=== PATIENT | male | born 1980 | race Two or more races ===

== ENCOUNTER 2018-08-15 20:06 | Emergency (ER) | payer OTHER ==
[2018-08-15] MEDS ORDERED: HYDROmorphONE/DILAUDID 2 MG/ML INJ IVP ONE (20:20)
[2018-08-15] MEDS ORDERED: ONDANSETRON 4 MG/2 ML VIAL IVP ONE (20:21)
[2018-08-15] MEDS ORDERED: KETOROLAC 15 MG/1 ML SDV IVP ONE ×2 (20:22→20:55)
[2018-08-15] MEDS ORDERED: NS 1,000 ML IV ONE ×2 (20:22→21:06)
[2018-08-15 22:00] VITALS: BP 130/89
[2018-08-15] MEDS ORDERED: TAMSULOSIN HCL 0.4 MG CAP PO ONE (22:02)
--- NOTE | 2018-08-15 22:06 | EDPHY ---
H & P Stated Complaint: 10/10 suprapubic pain x 20 min. Denies urinary s/s. Denies fever. Time Seen by Provider: 08/15/18 20:13 HPI/ROS: This patient complains of severe suprapubic pain. He explains that he was playing poker game feeling relaxed when he felt abrupt onset of 10/10 pain to the suprapubic region that radiated to his left testicle more than right testicle. He thought he might have to have a bowel movement and went to the bathroom but vomited instead. He came in by private vehicle for evaluation of the symptoms and has not had any medications prior to arrival. He has never had these symptoms before. He was in his usual state of health feeling well prior to the onset of symptoms. He explains that he does have an abdominal wall hernia in the left lower quadrant that is not causing him pain is chronic. He also has a small right direct inguinal hernia that is also a pain-free. ROS: Constitutional: No fevers HEENT: No complaints Pulmonary: No shortness of breath. Cardiovascular: No lightheadedness. No chest pain. No lower extremity pallor. GI: No upper abdominal pain. No distension. Normal bowel movements. : No complaints except the testicle pain which is now resolving Integumentary: No complaints Neuro: No numbness or tingling lower extremities. 10 point review of symptoms is performed and otherwise negative with exception of pertinent positives and negatives listed in HPI and ROS Source: Patient Exam Limitations: No limitations - Personal History Current Tetanus Diphtheria and Acellular Pertussis (TDAP): Yes - Medical/Surgical History Hx Asthma: No Hx Chronic Respiratory Disease: No Hx Diabetes: No Hx Cardiac Disease: No Hx Renal Disease: No Hx Cirrhosis: No Hx Alcoholism: No Hx HIV/AIDS: No Hx Splenectomy or Spleen Trauma: No Other PMH: inguinal hernias, broken bones - Family History Significant Family History: No pertinent family hx - Social History Smoking Status: Never smoked Alcohol Use: Occasionally Drug Use: None - Physical Exam Exam: General Appearance: This patient is in acute distress writhing on the cart and crying out in pain. Eyes: Pupils equal and round no pallor or injection. ENT, Mouth: Mucous membranes moist. Respiratory: There are no retractions, lungs are clear to auscultation. Cardiovascular: Regular rate and rhythm. No murmur gallop rub. He maintains 2 + symmetric femoral pulses bilaterally with no clinical findings of ischemia in the lower extremities. Gastrointestinal: Normoactive, soft, there is a reducible left lower quadrant hernia with no significant tenderness. No pulsatile masses. : No testicular tenderness or clinical evidence of torsion. No epididymal tenderness. Non circumcised penis without discharge or lesions. He has a right -sided direct inguinal hernia that is easily reducible. Back: Positive for left CVA tenderness no right-sided CVA tenderness. No midline tenderness. Neurological: GCS 15. Skin: Warm and dry, no rashes. Musculoskeletal: Neck is supple nontender. Extremities are symmetrical, full range of motion. Psychiatric: Mood and affect are normal DIFFERENTIAL DIAGNOSIS: After history and physical exam differential diagnosis included but is not limited to ureteral stone, aortic dissection, bowel obstruction, musculoskeletal pain, Constitutional: Initial Vital Signs Temperature (C) 37.0 C 08/15/18 20:15 Heart Rate 88 08/15/18 20:15 Respiratory Rate 22 H 08/15/18 20:15 Blood Pressure 178/113 H 08/15/18 20:15 O2 Sat (%) 98 08/15/18 20:15 O2 Delivery Mode Room Air O2 (L/minute) 2 Allergies/Adverse Reactions: No Known Allergies Allergy (Unverified 08/15/18 20:15) Home Medications: Medication Instructions Recorded Ibuprofen [Motrin (*)] 600 mg PO Q6 PRN #30 tab 08/15/18 Tamsulosin HCl [Flomax 0.4 MG (*)] 0.4 mg PO DAILY #10 cap 08/15/18 oxyCODONE/APAP 5/325 [Percocet 1 - 2 tab PO Q4-6PRN PRN #20 tab 08/15/18 5/325 (*)] Medical Decision Making Procedures: Bedside renal ultrasound indication this clinical evidence of renal colic evaluate for hydronephrosis Right kidney is visualized with normal appearing renal calices left kidney is visualized with evidence of hydronephrosis with distended calices by my interpretation. Patient tolerated the procedure well without complications. ED Course/Re-evaluation: IV normal saline bolus Dilaudid 1 mg IV and Toradol 15 mg IV initially. Patient achieve relief down to 6 or 7/10 thereafter had brief hypoxia to 85% room air that normalized with nasal cannula O2. He maintained a normal mental status throughout. After checking labs-minimal leukocytosis, no anemia normal platelets, normal basic metabolic panel I gave him an additional 50 mg of Toradol with eventual complete relief of his pain. Urine dip revealed hematuria with no other significant abnormalities. Discussion: Patient presented with classic presentation for renal colic without evidence of vascular compromise in his lower extremities, no evidence of incarcerated hernia clinically, no other red flag findings had relief with standard treatment receive Flomax in addition after seeing hematuria on urinalysis his bedside renal ultrasound shows findings consistent with hydronephrosis on the left side. He is given a filter for home to document stone passage with medication plan of ibuprofen, Percocet and Flomax. He is given a Urology follow-up if symptoms are not improving with the next few days and understands need to return emergency department should he developed unbearable pain despite medications, onset of fevers or other concerns. - Data Points Laboratory Results: 08/15/18 20:35 POC Sodium 134 mEq/L L mEq/L (135-145) POC Potassium 3.7 mEq/L mEq/L (3.3-5.0) POC Chloride 105.0 mEq/L mEq/L (97-110) POC Total CO2 27 mEq/L mEq/L (22-31) POC BUN 9 mg/dL mg/dL (7-23) POC Creatinine 0.8 mg/dL mg/dL (0.7-1.3) POC Glucose 109 mg/dL H mg/dL (70-100) POC Calcium 9.2 mg/dL mg/dL (8.5-10.4) Medications Given: Discontinued Medications Hydromorphone HCl (Dilaudid) 1 mg IVP EDNOW ONE Stop: 08/15/18 20:21 Last Admin: 08/15/18 20:30 Dose: 1 mg Sodium Chloride (Ns) 1,000 mls @ 0 mls/hr IV EDNOW ONE; Wide Open PRN Reason: Protocol Stop: 08/15/18 20:23 Last Admin: 08/15/18 20:31 Dose: 1,000 mls Sodium Chloride (Ns) 1,000 mls @ 0 mls/hr IV EDNOW ONE; Wide Open PRN Reason: Protocol Stop: 08/15/18 21:07 Last Admin: 08/15/18 21:07 Dose: 1,000 mls Ketorolac Tromethamine (Toradol) 15 mg IVP EDNOW ONE Stop: 08/15/18 20:23 Last Admin: 08/15/18 20:30 Dose: 15 mg Ketorolac Tromethamine (Toradol) 15 mg IVP EDNOW ONE Stop: 08/15/18 20:56 Last Admin: 08/15/18 21:06 Dose: 15 mg Ondansetron HCl (Zofran) 4 mg IVP EDNOW ONE Stop: 08/15/18 20:22 Last Admin: 08/15/18 20:30 Dose: 4 mg Oxycodone/Acetaminophen (Percocet 5/325mg Prepack#4) 1 btl TAKEHOME EDNOW ONE Stop: 08/15/18 22:16 Last Admin: 08/15/18 22:20 Dose: 1 btl Tamsulosin HCl (Flomax) 0.4 mg PO EDNOW ONE Stop: 08/15/18 22:03 Last Admin: 08/15/18 22:17 Dose: 0.4 mg Point of Care Test Results: CBC CBC Collection Date 08/15/18 CBC Collection Time 20:30 WBC 10.19 RBC 5.04 HGB 16.0 HCT 45.3 PLT 215 Neut # 5.36 Neut 52.5 LYMPH # 3.99 LYMPH 39.2 MCV 89.9 Chemistry 08/15/18 20:35 POC Sodium 134 mEq/L L mEq/L (135-145) POC Potassium 3.7 mEq/L mEq/L (3.3-5.0) POC Chloride 105.0 mEq/L mEq/L (97-110) POC Total CO2 27 mEq/L mEq/L (22-31) POC BUN 9 mg/dL mg/dL (7-23) POC Creatinine 0.8 mg/dL mg/dL (0.7-1.3) POC Glucose 109 mg/dL H mg/dL (70-100) POC Calcium 9.2 mg/dL mg/dL (8.5-10.4) Urine Dip Collection Date 08/15/18 Collection Time 21:52 Specific [place] (1.002-1.030) 1.020 PH (5.0-7.5) 7.0 Leukocytes (Negative) Negative Nitrites (Negative) Negative Protein (Negative) Negative Glucose (Negative) Negative Ketones (Negative) Negative Urobilnogen (0.2-1.0 EU) 0.2 Bilirubin (Negative) Negative Blood (Negative) Trace Departure - Departure Disposition: Home, Routine, Self-Care Clinical Impression: Ureteral stone with hydronephrosis Condition: Good Instructions: Ureteral Stones (ED) Additional Instructions: Diagnosis: Left ureteral stone Plan: Drink plenty fluids A take ibuprofen, and Tylenol or Percocet for pain. No driving, alcohol work on Percocet Consider a stool softener while on Percocet prevent constipation Flomax medication to help pass the stone Filter your urine to document passage of stone. If you have ongoing symptoms beyond the next few days despite treatment plan, call the urologist-Dr. Valentin to arrange follow-up appointment for further evaluation Return emergency department if you developed significant worsening of your symptoms despite the treatment plan or develops additional symptoms such as fevers. Referrals: NONE *PRIMARY CARE P,. [Primary Care Provider] - As per Instructions Isaac Valentin MD [Medical Doctor] - As per Instructions Prescriptions: Ibuprofen [Motrin (*)] 600 mg PO Q6 PRN #30 tab PRN Reason: Pain oxyCODONE/APAP 5/325 [Percocet 5/325 (*)] 1 - 2 tab PO Q4-6PRN PRN #20 tab PRN Reason: Pain Tamsulosin HCl [Flomax 0.4 MG (*)] 0.4 mg PO DAILY #10 cap
[2018-08-15] MEDS ORDERED: OXYCODONE/APAP 5/325MG PREPACK#4 BTL TAKEHOME ONE ×2 (22:10→22:15)
== END 2018-08-15 22:26 | disposition home or self-care (01) ==
LOC: CED 20:06
DX: N20.1 Calculus of ureter (principal); N13.30 Unspecified hydronephrosis; E86.9 Volume depletion, unspecified
CPT/HCPCS: 80048-ER; 85025-QW-ER; 96361-ER; 96374-ER; 96375-ER; 96376-ER; 99284-ER; J1170; J1885